=== PATIENT | male | born 1975 | race Hispanic/Latino ===

== ENCOUNTER 2019-12-03 14:54 | Outpatient (CLI) | payer OTHER | END 2019-12-03 21:14 | disposition home or self-care (01) | LOC: RAD 14:54 | DX: M25.511 Pain in right shoulder (principal); G56.01 Carpal tunnel syndrome, right upper limb; M54.9 Dorsalgia, unspecified; G89.29 Other chronic pain ==

== ENCOUNTER 2021-04-17 18:49 | Emergency (ER) | payer OTHER ==
[~2021-04-17] VITALS: Ht 172.7 cm; Wt 107.5 kg
[2021-04-17 19:22] LABS: PLATELET COUNT 204 K/uL (142-355)
[2021-04-17 19:31] LABS: POTASSIUM 4.1 mmol/L (3.6-5.2); SODIUM 141 mmol/L (136-145)
[2021-04-17 20:55] VITALS: BP 141/92; TEMP 98.8
== END 2021-04-17 21:00 | disposition home or self-care (01) ==
LOC: ED 18:49
PROVIDERS: Hospitalist
DX: U07.1 COVID-19 (principal); J06.9 Acute upper respiratory infection, unspecified; I16.0 Hypertensive urgency
CPT/HCPCS: 36415; 80053; 80320; 82550; 83880; 84484; 85027; 85610; 85730; 87635; 87651; 93005; 96360; 96361; 96375; 99284; J0360; J1100; J1885; J2405; U0003

== ENCOUNTER 2023-06-24 07:24 | Emergency (ER) | payer OTHER ==
[~2023-06-24] VITALS: Ht 172.7 cm; Wt 79.4 kg
[2023-06-24 07:53] VITALS: BP 167/89; TEMP 98.3
== END 2023-06-24 08:04 | disposition home or self-care (01) ==
LOC: ED 07:24
DX: F19.10 Other psychoactive substance abuse, uncomplicated (principal); R11.0 Nausea; F41.9 Anxiety disorder, unspecified
CPT/HCPCS: 99282